=== PATIENT | male | born 1940 | race African-American/Black ===

== ENCOUNTER 2019-03-15 20:56 | Emergency (ER) | payer OTHER ==
[~2019-03-15] VITALS: Ht 165.1 cm; Wt 63.5 kg
[~2019-03-15 20:56] MED LIST: LOSA1TAB22 PO; OMEP40CA5 PO
[2019-03-15 21:00] VITALS: BP 149/72
[2019-03-15] MEDS ORDERED: HYDR25SU18 RC (21:30)
--- NOTE | 2019-03-15 21:30 | PHYS DOC ---
Past Medical History Past Medical History: Hypertension Past Surgical History: Other Additional Past Surgical Histo: spleen removal Smoking: Cigarettes Alcohol Use: None Drug Use: None Adult General Chief Complaint Chief Complaint: RECTAL BLEED HPI HPI 79-year-old male presents with one-week history of rectal discomfort/itching for which patient started to notice some rectal bleeding. Patient reports he did follow with his PCP on was prescribed some cream but has been unable to fill it due some discrepancy with the order. Patient denies any nausea or vomiting. Denies abdominal pain. Denies trauma. Denies fever or chills. Review of Systems Review of Systems Constitutional: Denies fever or chills Eyes: Denies redness or eye pain HENT: Denies nasal congestion or sore throat Respiratory: Denies cough or shortness of breath Cardiovascular: Denies chest pain or palpitations GI: Denies abdominal pain, nausea, or vomiting; reports hematochezia and rectal pain and itching : Denies dysuria or hematuria Musculoskeletal: Denies back pain or joint pain Integument: Denies rash or skin lesions Neurologic: Denies headache, focal weakness or sensory changes Complete systems were reviewed and found to be within normal limits, except as documented in this note. Current Medications Current Medications Current Medications Medications (Trade) Dose Ordered Sig/Mukul Start Time Stop Time Status Last Admin Dose Admin Hydrocortisone Acetate (Anucort-Hc) 25 mg 1X ONCE 03/15/19 22:00 03/15/19 21:48 DC 03/15/19 21:39 25 MG Allergies Allergies Allergies Coded Allergies Type Severity Reaction Last Updated Verified No Known Drug Allergies 06/17/13 No Physical Exam Physical Exam Constitutional: Well developed, well nourished, no acute distress, non-toxic appearance HENT: Normocephalic, atraumatic, oropharynx moist Eyes: Conjunctiva normal, no discharge Neck: Normal range of motion, no tenderness, supple Cardiovascular: Heart rate normal, regular rhythm Lungs & Thorax: Bilateral breath sounds clear to auscultation, no wheezing Abdomen: Soft, no tenderness Rectal: No external hemorrhoids noted, anal fissure noted at 6 o'clock position which is nonbleeding, no internal hemorrhoids appreciated. Stool is light brown in color, [employer] Specialist- RN Skin: Warm, dry, no erythema, no rash Extremities: No tenderness, ROM intact, no edema Neurologic: Alert and oriented X 3, no focal deficits noted Psychologic: Affect normal, judgement normal Current Patient Data Vital Signs Vital Signs Date Time Temp Pulse Resp B/P (MAP) Pulse Ox O2 Delivery O2 Flow Rate FiO2 03/15/19 21:00 98.1 63 16 149/72 (97) 97 Room Air 98.1 EKG EKG [] Radiology/Procedures Radiology/Procedures [] Course & Med Decision Making Course & Med Decision Making Patient presents with history of present illness and physical exam consistent for anal fissure. No active gross hematochezia noted on physical exam. Vital signs stable. Symptomatic treatment provided with Anusol suppository. Patient stable for discharge with outpatient follow-up with PCP/GI. Discussed findings and plan with patient and family, who acknowledge understanding and agreement. Dragon Disclaimer Dragon Disclaimer This electronic medical record was generated, in whole or in part, using a voice recognition dictation system. Departure Departure Impression: Primary Impression: Hematochezia Additional Impression: Anal fissure Disposition: HOME, SELF-CARE Condition: STABLE Referrals: ROLA FOREMAN MD (PCP) Patient Instructions: Anal Fissure, Adult, [id number], Rectal Bleeding, [id number] Scripts Hydrocortisone Acetate (ANUSOL-HC) 25 Mg Supp.rect 1 SUPP RC BID PRN for SEE COMMENTS, #20 SUPP For rectal bleeding and/or itching Prov: MARISSA GONZALEZ DO 03/15/19 Problem Qualifiers MARISSA GONZALEZ DO Mar 15, 2019 21:30
[2019-03-15] MEDS ORDERED: HYDROCORTISONE ACETATE 25 MG SUPP.RECT PR ONE (22:00)
== END 2019-03-15 21:44 | disposition home or self-care (01) ==
LOC: ER 20:56
DX: K92.1 Melena (principal); K60.2 Anal fissure, unspecified; I10 Essential (primary) hypertension; F17.210 Nicotine dependence, cigarettes, uncomplicated
CPT/HCPCS: 99282

== ENCOUNTER → 2020-12-04 | Day surgery (SDC) | payer MEDICARE ==
[~2020-12-04] VITALS: Ht 165.1 cm; Wt 143.0 kg
[~2020-12-04] MED LIST changes: +AMLO-187 PO; +ASPI81TA59 PO; +HYDR25SU18 RC; +HYDROmorphone 2 MG/ML VIAL IVP PRN; +IV RINGERS,LACTATED 1000ML 1,000 ML IV SCH; +LIDOCAINE 2% PF 5 ML VIAL. ONE; +MORPHINE SULFATE 2 MG/ML VIAL. IVP PRN; -OMEP40CA5 PO; +OMEP40CA7 PO; +PROCHLORPERAZINE 10 MG/2 ML VIAL. IVP PRN; +PROPOFOL 10 MG/ML (20ML) VIAL. IV ONE; +fentaNYL PF VIAL 100 MCG/2 ML VIAL IVP PRN
[2020-12-04 13:13] VITALS: BP 151/81
--- NOTE | 2020-12-04 14:15 | PDOC4 ---
PROCEDURE Procedure Colonoscopy Indication: H/o colon cancer, resected 2018. Surveillance. Meds: per anesthesia Findings: RAUL--enlarged, smooth prostate. --'Scope advanced to ileocolostomy. Prep adequate. Mucosa normal. Scattered diverticula throughout. No polyps, masses, etc. seen. Anastomosis widely patent. Small IH's on retroflex. Carlos. well. IMP: No recurrent tumor, s/p right colectomy. Diverticulosis IH's BPH REC: Will suggest small dose of fiber for the loose stools. May f/u with me prn. No further surveillance needed. Resume home meds, diet. MARISSA DUNCAN MD Dec 04, 2020 14:15
[2020-12-04 14:43] VITALS: BP 145/68
== END | disposition home or self-care (01) ==
LOC: SURG 12:30
PROVIDERS: ATTEND Internal Medicine Gastroenterology
DX: Z08 Encounter for follow-up examination after completed treatment for malignant neoplasm (principal); R19.7 Diarrhea, unspecified; K64.0 First degree hemorrhoids; K57.30 Diverticulosis of large intestine without perforation or abscess without bleeding; K63.89 Other specified diseases of intestine; N40.0 Benign prostatic hyperplasia without lower urinary tract symptoms; I10 Essential (primary) hypertension; M19.90 Unspecified osteoarthritis, unspecified site; Z85.038 Personal history of other malignant neoplasm of large intestine; Z98.0 Intestinal bypass and anastomosis status; Z87.891 Personal history of nicotine dependence; Z79.82 Long term (current) use of aspirin; Z79.899 Other long term (current) drug therapy; Z98.890 Other specified postprocedural states; Z20.822 Contact with and (suspected) exposure to COVID-19; Z88.8 Allergy status to other drugs, medicaments and biological substances
CPT/HCPCS: 45378; 87426; J2704